=== PATIENT | female | born 1980 | race Caucasian/White ===

== ENCOUNTER 2016-10-25 18:18 | Emergency (ER) | payer OTHER ==
[~2016-10-25] VITALS: Ht 154.9 cm; Wt 70.3 kg
[~2016-10-25 18:18] MED LIST: BACTRIM DS 8001 TAB PO
[2016-10-25 18:21] VITALS: BP 116/61
--- NOTE | 2016-10-25 18:39 | ED EAR COMPLAINT ---
History of Present Illness General Chief Complaint: Ear Complaints Stated Complaint: LT EAR PAIN Source: patient, old records Exam Limitations: no limitations Vital Signs & Intake/Output Vital Signs & Intake/Output Vital Signs Date Time Temp Pulse Resp B/P Pulse O2 O2 Flow FiO2 Ox Delivery Rate 10/25 1852 Room Air 10/25 1821 97.1 68 16 116/61 99 Room Air ED Intake and Output 10/26 0000 02 1200 Intake Total Output Total Balance Patient 155 lb Weight Allergies Coded Allergies: NO KNOWN ALLERGIES (03/16/12) Reconcile Medications Amoxicillin/Potassium Clav (Augmentin 875-125 Tablet) 875 MG-125 MG TABLET 1 TAB PO BID otitis Sulfamethoxazole/Trimethopri (Bactrim Ds 800 MG-160 MG) 1 TAB TAB 1 TAB PO BID . Triage Note: PT STATSE SHE THINKS SHE HAS AN EAR INFECTION LEFT SIDE. PT REPORTS SHE HAS SWOLLEN GLANDS ON THAT SIDE AND THE LAST TIME THIS HAPPEND THAT IS WHAT IT WAS. Triage Nurses Notes Reviewed? yes Onset: Abrupt Duration: day(s): (2), constant Timing: recent history Injury Environment: home Severity: moderate Severity Numbers: 6 No Modifying Factors: none Associated Symptoms: denies : No Patient currently breastfeeds: No HPI: This is a 36-year-old female with history of epidermal cyst to her scalp presents to emergency room for evaluation this evening stating that she believes she has a ear infection for the past few days she's had pain to her left ear and the posterior aspect of her scalp. Patient states that the cyst only pop on their own, she denies fever chills rhinorrhea congestion sore throat. She denies any tinnitus or hearing loss no right ear symptoms were no modifying factors or associated symptoms she took Motrin without improvement. She states when she's had similar pain in the past she was diagnosed with an ear infection which resolved with antibiotics. (MARY MARTINEZ) Past History Travel History Traveled to [place] past 21 day No Medical History Any Pertinent Medical History? see below for history Neurological: NONE EENT: NONE Cardiovascular: NONE Respiratory: NONE Gastrointestinal: NONE Hepatic: NONE Renal: NONE Musculoskeletal: CYSTS TO SCALP Psychiatric: NONE Endocrine: NONE Blood Disorders: NONE Cancer(s): NONE DRAFTER (CAD) ELECTRONIC/Reproductive: NONE Surgical History Surgical History: ABDOMINOPLASTY, BREAST AUGMENTATION Psychosocial History What is your primary language Citizen Of [place] Tobacco Use: Never used ETOH Use: denies use Illicit Drug Use: denies illicit drug use Family History Hx Contributory? No (MARY MARTINEZ) Review of Systems Review of Systems Constitutional: Reports: see HPI. All Other Systems: Reviewed and Negative Comments Review of systems: See HPI, All other systems negative. Constitutional, no chills no fever, no malaise HEENT: No visual changes no sore throat no congestion, ear pain Cardiovascular: No chest pain , no palpitation Skin,no rashes, no change in skin Respiratory: No dyspnea no cough no sputum GI: No nausea no vomiting, no diarrhea, : No dysuria Muscle skeletal: No joint pain, no back pain, no neck pain, Neurologic: No numbness no headache Psych: No stress Heme/endocrine: No bruising no bleeding Immunology: No lymphadenopathy (MARY MARTINEZ) Physical Exam Physical Exam General Appearance: well developed/nourished, alert, awake Ears: Left: other (fluid behind tm). Comments: Well-developed well-nourished patient in no apparent distress. Head/Face: Atraumatic, no maxillary/frontal sinus tenderness, no facial swelling no mastoid tenderness, (+) mult epidermal cysts noted to scalp Eyes: PERRL, EOMI, no conjunctival injection. No nystagmus Ear:fluid behind l tm, no perforation, no erythema r External auditory canal and Tympanic membrane clear, no erythema, no FB. Nose: atraumatic.Normal inspection: Throat: Moist mucous membranes.Pharynx normal. No pharyngeal erythema/exudate seen. No stridor/drooling or assymetry. No swelling or edema. Neck: Supple, no lymphadenopathy, FROM Back: FROM, Nontender Cardiovascular: Regular rate and rhythms no murmurs rubs or gallops, Respiratory: Chest nontender.There were no bony deformities, no asymmetry. No respiratory distress. Patient speaking in full complete sentences. Breath sounds clear to auscultation bilaterally: NO W/R/R Extremities: full range of motion Neuro: Alert and oriented x3 Skin: Warm & dry;No appreciable rash on exposed skin Psych: Mood affect normal, normal memory normal judgment. (MARY MARTINEZ) Progress Differential Diagnoses I considered the following diagnoses in my evaluation of the patient: otiis, abscess, mastoiditsi, viral syndrome Plan of Care: advised f/u with pmd, rx for augmenting provdided cleared for dc Initial ED EKG: none (MARY MARTINEZ) Departure Departure Time of Disposition: 1846 Disposition: HOME OR SELF CARE Condition: Stable Clinical Impression Primary Impression: Otitis media Referrals: GERHARD LINDSAY MD (PCP/Family) Additional Instructions: augmentin as directed, tylenol or motrin eveyr 4-6 hours as needed. follow u with your pmd onmonday, return with any concerns. this prescription was sent to [facility]. Departure Forms: Customer Survey General Discharge Information Prescriptions: Current Visit Scripts Amoxicillin/Potassium Clav (Augmentin 875-125 Tablet) 1 TAB PO BID #14 TAB (MARY MARTINEZ) PA/COMPUTER GRAPHICS ILLUSTRATOR Co-Sign Statement Statement: ED Attending supervision documentation- [] I saw and evaluated the patient. I have also reviewed all the pertinent lab results and diagnostic results. I agree with the findings and the plan of care as documented in the PA's/COMPUTER GRAPHICS ILLUSTRATOR's documentation. [X] I have reviewed the ED Record and agree with the PA's/COMPUTER GRAPHICS ILLUSTRATOR's documentation. [] Additions or exceptions (if any) to the PAs/COMPUTER GRAPHICS ILLUSTRATOR's note and plan are summarized below: [] (MAGGIE HERRERA,GLADYS)
[2016-10-25] MEDS ORDERED: AUGMENTIN 875-1 EACH PO (18:48)
== END 2016-10-25 18:52 ==
LOC: ERH 18:18
DX: H66.92 Otitis media, unspecified, left ear (principal)